=== PATIENT | female | born 1970 | race Caucasian/White ===

== ENCOUNTER → 2018-07-18 12:55 | Outpatient (CLI) | payer MEDICARE, SELFPAY ==
--- NOTE | 2018-07-18 12:56 | CI_ITS ---
Cerebrovascular Exam Indications: 780.4 Dizziness and giddiness. 784.5 Other speech disturbance. IMPRESSIONS 1. The bilateral vertebral arteries are patent with normal antegrade flow. 2. Study suggests less than 20% stenosis involving the right internal carotid artery. 3. Study suggests less than 20% stenosis involving the left internal carotid artery. Carotid duplex study. Complete study and Doppler flow study including spectral analysis, color and diaz scale imaging. Location: Vascular laboratory. Patient status: Outpatient. Tables: Arterial flow: + +--------+--------+ Location V sys V ed + +--------+--------+ Right CCA - proximal 83.3cm/s 23.6cm/s + +--------+--------+ Right CCA - distal 49.5cm/s 18.1cm/s + +--------+--------+ Right ECA 65.1cm/s 15.9cm/s + +--------+--------+ Right ICA - proximal 55.7cm/s 20.8cm/s + +--------+--------+ Right ICA - mid 70.5cm/s 28.9cm/s + +--------+--------+ Right ICA - distal 63.9cm/s 29.5cm/s + +--------+--------+ Right vertebral 42.9cm/s 18.3cm/s + +--------+--------+ Left CCA - proximal 71.7cm/s 17.6cm/s + +--------+--------+ Left CCA - distal 57.4cm/s 17.3cm/s + +--------+--------+ Left ECA 50.8cm/s 12cm/s + +--------+--------+ Left ICA - proximal 54cm/s 21.1cm/s + +--------+--------+ Left ICA - mid 63.6cm/s 27.2cm/s + +--------+--------+ Left ICA - distal 62.2cm/s 22.3cm/s + +--------+--------+ Left vertebral 38.2cm/s 15.3cm/s + +--------+--------+ Velocity ratios: + + + + + + Right, V sys Right, V ed Left, V sys Left, V ed + + + + + + Max ICA/dist CCA 1.42 1.63 1.11 1.57 + + + + + + (Report amended ) Electronically signed by: Shayan Valentin [id number]
--- NOTE | 2018-07-18 14:12 | MR_ITS ---
MR head/brain wo con Ordering Physician: Arleen Castle Patient Age: 47 years: Female HISTORY: ITS.REASON: ALTERED MENTAL STATUS Dizziness that comes and goes at times when she is dizzy she can barely keep her eyes open and once to go to sleep. More frequent episodes. Also has had slurred words and cc of black spots TECHNIQUE: MRI the brain without contrast. : Multiplanar FLAIR, T1, T2 weighted images along with axial diffusion/ADC imaging performed on 1.5 T. Siemens, MRI. . COMPARISON :Prior CT head 12/13/2015. FINDINGS The brain appears within normal limits normal anatomy. Normal cranial cervical junction. The ventricles and basal cisterns appear normal. Sella is unremarkable. Suprasellar region satisfactory. Survey images [place] appears satisfactory on this routine brain MRI No territorial infarct. No extra-axial nor subdural findings or collections. No mass lesion or mass effect. The diffusion images reveal no recent or acute infarct. The sensitive FLAIR images show no deep white matter lesions . Scalp and skull unremarkable Posterior fossa. Unremarkable. CP angles are clear. IACs unremarkable within normal limits. The mastoid air cells unremarkable. . The paranasal sinuses are fairly clear with only scant mucosal thickening at floor of left sphenoid sinus and mild mucosal thickening ethmoid air cells inferiorly. Mild mucosal thickening at inferior maxillary sinuses with 14 mm x 15 mm retention cyst lateral floor of left maxillary sinus.... Note Deviation nasal septum convexity to the right IMPRESSION... 1. Negative MRI the brain. Brain WNL.. Normal anatomy. No lesions evident 2. Incidental note: Mild chronic paranasal sinus disease most evident towards the floor of maxillary sinuses. No fluid levels. 3. Otherwise regarding dizziness:, posterior fossa, CP angles,, IACs, mastoids unremarkable .
== END ==
PROVIDERS: PCP Nurse Practitioner Family; Visit Provider Nurse Practitioner Family
DX: R41.82 Altered mental status, unspecified (principal); R42 Dizziness and giddiness
CPT/HCPCS: 70551; 93880

== ENCOUNTER → 2020-06-04 08:30 | Outpatient (CLI) | payer MEDICARE, SELFPAY ==
[2020-06-04 09:24] LABS: Coronavirus 19 IgG Antibody Negative (Negative); Coronavirus 19 IgM Antibody Negative (Negative)
== END ==
PROVIDERS: Visit Provider Internal Medicine Gastroenterology
DX: Z01.812 Encounter for preprocedural laboratory examination (principal)
CPT/HCPCS: 36415; 86328

== ENCOUNTER 2020-06-06 07:54 | Day surgery (SDC) | payer MEDICARE, SELFPAY ==
[2020-05-31 10:24] VITALS: BMI 27.3
[2020-06-06] VITALS (7 sets, daily range): BP systolic 107–147; BP diastolic 60–92; PULSE 63–114; RESP 16–18; TEMP 36.6; O2SAT 93–100
--- NOTE | 2020-06-06 08:44 | HMH.PROC ---
[facility] Procedure Note Procedure Note:: Colonoscopy Procedure Report: Colonoscopy Endoscopist: Ilir Narvaez II, MD Referring physician: MILO Rand Date of Procedure: June 06, 2020 Equipment: Olympus 180 variable stiffness pediatric colonoscope Sedation: MAC sedation Indication: Mrs. Yung is a 49-year-old female who is here for initial screening colonoscopy. She reports no abdominal pain, weight loss, change in her bowel habits or rectal bleeding. She reports no family history of colon cancer. Procedure: Prior to the procedure, a history and physical exam was performed, and patient's medications and allergies were reviewed. The risks, benefits and alternatives of the sedation and procedure were discussed with the patient. All questions were answered and informed consent was obtained. The patient was brought to the procedure room. Patient identification and proposed procedure were verified by the physician and the nurse. The patient was placed in a left lateral decubitus position and the scope was passed under direct vision. Throughout the procedure, the patient's blood pressure, pulse, and oxygen saturations were monitored continuously. The colonoscopy was accomplished without difficulty. The patient tolerated the procedure well. Findings: On digital rectal examination there was normal rectal tone. There were no external hemorrhoids. The colonoscope was introduced through the anal canal to the rectum and advanced to the cecum. The ileocecal valve and appendiceal orifice were identified. The scope was advanced a short distance into the ileum which appeared grossly normal. The scope was then withdrawn into the colon. The cecum, ascending, transverse, descending, sigmoid and rectum were grossly normal. There were no mucosal abnormalities identified. Upon retroflexion within the rectum there were grade 1 internal hemorrhoids.The preparation was excellent throughout with [place] Preparation Score of 9. The cecal time was 12 minutes. Impression: 1. Normal colonoscopy with intubation of the terminal ileum 2. Grade 1 internal hemorrhoids Plan: The patient will not require screening/surveillance colonoscopy again for 10 years by ACS guidelines. I would encourage fiber supplementation on a long-term daily maintenance basis.
--- NOTE | 2020-06-06 10:07 | P.PN_ITS ---
[facility] Anesthesia Checklist - Patient Identification Patient Identification: Arm Band - Structural Data Admitted From: Home Planned Operative Procedure/s: colonoscopy Consent for Planned Operative Procedure(s) Verified: Yes Verified Documents: Surgical Consent, History and Physical - NPO Status Verified Time NPO: 00:00 - Additional verifications Anesthesia Reactions: No - Airway Assessment C-Spine Mobility Assessed: Yes (mp2) TMJ Mobility Assessed: Yes Dentition: Good Dentition - Neurological Assessment Level of Consciousness: Awake, Alert - Anesthesia Plan Anesthesia Risk discussed: Yes Anesthesia Plan: Verified ASA Class: II Anesthesia Type: MAC [facility] History I have reviewed the patient's past medical history: Yes Medical History: Reports:: Hyperlipidemia Denies:: Cancer, Diabetes Mellitus Type 1, Diabetes Mellitus Type 2, Internal Pacemaker, MRSA, Seizures *Have you ever received a pneumonia vaccine?: No *Have you received a flu vaccine this season?: Yes Anesthesia experience/problems:: nac Other Surgeries: Yes: Tubal Ligation. No: Pacemaker Amputation: No Fractures: No - *Social History Last grade of school completed: Some college Smoking Status: Never smoker Alcohol Intake: never Substance Use Type: denies use *Occupational Status:: disabled Housing: house Household Members: spouse *Travel in the last 8 weeks: None Family Hx:: No significant family history
== END 2020-06-06 10:15 | disposition home or self-care (01) ==
LOC: OUTP 07:57
PROVIDERS: PCP Nurse Practitioner Family; Visit Provider Internal Medicine Gastroenterology
PROC: 0DJD8ZZ Inspection of Lower Intestinal Tract, Via Natural or Artificial Opening Endoscopic (ICD-10-PCS; CPT 45378; principal; 2020-06-06 09:00)
DX: Z12.11 Encounter for screening for malignant neoplasm of colon (principal); K64.0 First degree hemorrhoids; E78.5 Hyperlipidemia, unspecified; Z79.899 Other long term (current) drug therapy
CPT/HCPCS: G0121

== ENCOUNTER 2023-08-21 12:44 | Emergency (ER) | payer MEDICARE, SELFPAY ==
[2023-08-21] VITALS (8 sets, daily range): BP systolic 133–162; BP diastolic 71–95; PULSE 59–78; RESP 16–18; TEMP 36.7; O2SAT 95–98; BMI 28.3
--- NOTE | 2023-08-21 12:53 | ECG_ITS ---
APPROVED REPORT Exam: Resting ECG HR:65 bpm ECG Measurements Heart Rate 65 AXES MN 180 P 44 QRSd 98 QRS 12 QT 402 T 33 QTc 414 Conclusion SINUS RHYTHM NORMAL ECG Electronically signed by : YESSY MARY, 08/21/2023 19:28:20
--- NOTE | 2023-08-21 13:02 | PC.NURSE ---
Dr. Fernandez at [facility] for pt eval
[2023-08-21 13:06] LABS: Basophils # 0.1 K/mm3 (0-0.2); Basophils % 1.1 % (0.1-2.0); Eosinophils # 0.3 K/mm3 (0.0-0.4); Eosinophils % 4.4 % (0.1-12.0); Hematocrit 41.7 % (37.0-47.0); Hemoglobin 13.8 g/dL (12.2-16.2); Lymphocytes # 1.8 K/mm3 (0.7-4.5); Lymphocytes % 28.5 % (10-50); Mean Corpuscular HGB Conc 33.1 g/dL (31.8-35.4); Mean Corpuscular Hemoglobin 30.6 pg (27.0-31.2); Mean Corpuscular Volume 92.6 fl (81-99); Mean Platelet Volume 8.6 fl (7.4-10.4); Monocytes # 0.3 K/mm3 (0.1-1.0); Monocytes % 5.2 % (1.7-9.3); Neutrophils # 3.9 K/mm3 (1.8-7.8); Neutrophils % 60.8 % (37.0-80.0); Platelet Count 300 K/mm3 (142-424); Red Cell Distribution Width 13.3 % (11.5-17.5); White Blood Count 6.5 K/mm3 (4.8-10.8)
--- NOTE | 2023-08-21 13:13 | CT_ITS ---
FINAL REPORT TECHNIQUE: thin section axial CT with and without IV contrast supplemented with multiplanar 3-D reconstruction of the head. This study was performed with techniques to keep radiation doses as low as reasonably achievable, (ALARA)individualized dose reduction techniques using automated exposure control or adjustment of mA and/or kV according to the patient's size were employed. CLINICAL HISTORY: FERRELL, left sided weakness/sensory loss 3 days FINDINGS: The cranial circulation is unremarkable. There is no significant stenosis, aneurysm or occlusion. There is lobular mucoperiosteal thickening in the maxillary sinus consistent with chronic sinusitis. IMPRESSION: No evidence of aneurysm or major branch occlusion. Reviewed, Interpreted and Dictated by Calvin Beck MD Transcribed by Teena Simental Authenticated and [facility]
--- NOTE | 2023-08-21 13:13 | CT_ITS ---
FINAL REPORT TECHNIQUE: NASCET technique utilized for stenosis evaluation. CLINICAL HISTORY: FERRELL, left sided weakness/sensory loss 3 days FINDINGS: RIGHT CAROTID: No significant stenosis is seen of the cervical common or internal carotid artery. LEFT CAROTID: No significant stenosis seen of the cervical common or internal carotid artery. VERTEBRALS: The vertebrals are patent. No significant stenosis is present. IMPRESSION: No significant carotid stenosis. Reviewed, Interpreted and Dictated by Calvin Beck MD Transcribed by Teena Simental Authenticated and [facility]
--- NOTE | 2023-08-21 13:13 | CT_ITS ---
FINAL REPORT TECHNIQUE: Axial CT images were performed through the head. Coronal reformatted images were submitted. This study was performed with techniques to keep radiation doses as low as reasonably achievable (ALARA). Individualized dose reduction techniques using automated exposure control or adjustment of mA and/or kV according to the patient's size were employed. CLINICAL HISTORY: FERRELL, left sided weakness/sensory loss 3 days FINDINGS: The ventricles are normal in size. There is no evidence of hemorrhage. There is no mass or edema identified. There is no abnormal extra-axial fluid seen. There is lobular mucoperiosteal thickening in the left maxillary sinus. IMPRESSION: No acute intracranial process. Chronic left maxillary sinusitis. Reviewed, Interpreted and Dictated by Calvin Beck MD Transcribed by Teena Simental Authenticated and . [facility]
--- NOTE | 2023-08-21 13:18 | HMH.EDGENADL ---
Discharge Plan Disposition Patient Disposition: Home, Self-Care Condition: Good Prescriptions Prescriptions: No Action pravastatin 40 MG tablet 40 mg PO HS hydrochlorothiazide 12.5 MG tablet 12.5 mg PO DAILY Referrals Follow up/Referrals: Arleen Castle [Primary Care Provider] - See instructions Activity Restrictions/Add. Instructions Additional Instructions/Restrictions: You were evaluated in the emergency department today. Please keep your follow-up tomorrow with your specialists. They can advise you further on your symptoms. If you wake up tomorrow with severe headache or new neurologic symptoms, do not drive or operate heavy machinery. I recommend resting for the rest of the day and avoiding driving today given that you received multiple medications that can be sedating. Return to the emergency department for new or worsening symptoms. Clinical Impressions Clinical Impression: Headache, Left-sided weakness Instructions Patient Instructions: DI for Migraine Discharge ED Provider: Layne Guaman General Adult HPI <J Mendel Fernandez MD - Last Filed: 08/21/23 14:52> General Chief complaint: Headache Stated complaint: headaches,weak on left side Time Seen by Provider: 08/21/23 13:02 Mode of Arrival: EMS Source of Information: Patient Limitations: No Limitations Description of Symptoms (Recalled from ER Triage Doc. by RN): Patient reports recurrent left sided headache and weakness. States this episode has been going on for 3 days and has just continued to get worse. Reports having compressed nerves in her neck and has been awaiting surgery to correct this problem. Currently sees pain management for this problem. History of Present Illness HPI narrative: Patient is a 52-year-old female presents today with left-sided headache and left upper extremity and lower extremity weakness and sensory changes. She states that this has been ongoing for several years she is followed by a neurologist and neurosurgeon [facility] has been getting pain injections in her neck by pain specialist as well. She states she always has some weakness but this is worse than normal over the last several days. States the headache is also worse than normal last several days. She is accompanied by her daughter at the bedside who states that she is more out of it, than she normally is. The patient denies any drug use. No history of illicit drug use as well according to family he is close to her. No fevers or chills or any other symptoms associate with this. When asked what changed today given the chronicity of this she states that it was just out of proportion to what she is normally had the past. She does have a history of scleroderma and Sjogren's and she takes rituximab but states she has not had 1 of these injections and a long time. Related Data Home Medications Medication Instructions Recorded Confirmed hydrochlorothiazide 12.5 mg tablet 12.5 mg PO DAILY High blood 05/31/20 05/31/20 pressure pravastatin 40 mg tablet 40 mg PO HS Cholesterol 05/31/20 05/31/20 Allergies Allergy/AdvReac Type Severity Reaction Status Date / Time No Known Allergies Allergy Verified 05/31/20 10:22 [facility] <Adriana Fernandez MD - Last Filed: 08/21/23 14:52> [facility] Disclaimer: The information contained in this section may have been updated after the patient was seen, as this information can be updated by other users. Social History Smoking Status: Unknown if ever smoked alcohol intake: never substance use type: denies use current occupational status: disabled Travel in the last 8 weeks: None household members: spouse housing: house current occupation: save a lot caffeine: No <Adriana Fernandez MD - Last Filed: 08/21/23 14:52> ROS Obtained: Yes All systems reviewed & no additional complaints except as documented Physical Exam <Adriana Fernandez MD - Last Filed: 08/21/23 14:52> General General appearance: alert and in no apparent distress Eye Eye exam: Present normal appearance Respiratory Respiratory exam: Present normal lung sounds bilaterally; Absent respiratory distress Cardiovascular Cardiovascular exam: Present regular rate and normal rhythm Abdominal Exam Abdominal exam: Present soft; Absent distention or tenderness Neurological Exam Neurological exam: Present alert, oriented X3, CN II-XII intact, motor sensory deficit (Patient has 4/5 strength in left upper and left lower extremity with decreased sensation throughout but she has no pronator drift) and other (Patient has slowed cognition speaking slowly but fluently and comprehensible family states this is out of proportion to what she normally is) Medical Decision Making <Adriana Fernandez MD - Last Filed: 08/21/23 14:52> Rickie Inquiry Pt receiving controlled substance: No Vital Signs: 08/21/23 12:44 08/21/23 13:00 08/21/23 13:30 Temperature 98.0 F Temperature Source Oral Pulse Rate 73 71 Pulse Rate [Radial] 78 Respiratory Rate 16 Blood Pressure 153/95 H 152/85 H Blood Pressure [Right Arm] 162/89 H Blood Pressure Mean 107 Blood Pressure Mean [Right Arm] 113 Blood Pressure Source Blood Pressure Source [Right Arm] Automatic Cuff Blood Pressure Position Blood Pressure Position [Right Arm] Sitting 02 Sat by Pulse Oximetry 98 97 98 Oxygen Delivery Method Room Air Room Air Room Air 08/21/23 14:00 08/21/23 15:00 08/21/23 15:30 Temperature Temperature Source Pulse Rate 68 66 59 L Pulse Rate [Radial] Respiratory Rate Blood Pressure 133/71 133/77 133/72 Blood Pressure [Right Arm] Blood Pressure Mean 91 97 101 Blood Pressure Mean [Right Arm] Blood Pressure Source Blood Pressure Source [Right Arm] Blood Pressure Position Blood Pressure Position [Right Arm] 02 Sat by Pulse Oximetry 97 97 95 Oxygen Delivery Method Room Air Room Air Room Air 08/21/23 16:00 08/21/23 17:08 Temperature 98.1 F Temperature Source Oral Pulse Rate 60 60 Pulse Rate [Radial] Respiratory Rate 18 Blood Pressure 143/82 H 143/82 H Blood Pressure [Right Arm] Blood Pressure Mean 106 Blood Pressure Mean [Right Arm] Blood Pressure Source Automatic Cuff Blood Pressure Source [Right Arm] Blood Pressure Position Sitting Blood Pressure Position [Right Arm] 02 Sat by Pulse Oximetry 96 Oxygen Delivery Method Room Air Room Air Lab Data Lab results reviewed: Yes I reviewed the patient's lab results. Lab Results 08/21/23 12:51: WBC 6.5, RBC 4.50, Hgb 13.8, Hct 41.7, MCV 92.6, MCH 30.6, MCHC 33.1, RDW 13.3, Plt Count 300, MPV 8.6, Neut % (Auto) 60.8, Lymph % (Auto) 28.5, [place] % (Auto) 5.2, Eos % (Auto) 4.4, Baso % (Auto) 1.1, Neut # (Auto) 3.9, Lymph # (Auto) 1.8, [place] # (Auto) 0.3, Eos # (Auto) 0.3, Baso # (Auto) 0.1, PT 10.0 L, INR 0.92, APTT 27.8, Troponin I 0.02 08/21/23 14:20: Sodium 140, Potassium 4.0, Chloride 108 H, Carbon Dioxide 26, Anion Gap 10.0, BUN 8, Creatinine 0.80, Estimated Creat Clear 99, Estimated GFR 75, Est GFR ( Amer) 91, Glucose 103 H, Calcium 9.3, Total Bilirubin 1.0, AST 30, ALT 32, Alkaline Phosphatase 92, Total Protein 6.5, Albumin 4.0, Globulin 2.5, Albumin/Globulin Ratio 1.6 08/21/23 14:40: Urine Opiates Screen Negative, Urine Methadone Screen Negative, Ur Barbituates Screen Negative, Ur Phencyclidine Scrn Negative, Ur Amphetamines Screen Negative, U Benzodiazepines Scrn Negative, Urine Cocaine Screen Negative, U Marijuana (THC) Screen Negative 08/21/23 12:51 08/21/23 14:20 Orders (Tests/Meds): ED MEDICATIONS Discontinued Medications Generic Name Dose Route Start Last Admin Trade Name Freq PRN Reason Stop Dose Admin Dexamethasone Sodium Phosphate 10 mg 08/21/23 14:48 08/21/23 14:55 Dexamethasone 4mg/Ml 1ml Vial IV 08/21/23 14:49 10 mg ONCE ONE Administration Diphenhydramine HCl 12.5 mg 08/21/23 13:13 08/21/23 13:32 Diphenhydramine 50mg/Ml Vial IV 08/21/23 13:14 12.5 mg ONCE ONE Administration Lactated Ringer's 1,000 mls @ 999 mls/hr 08/21/23 13:15 08/21/23 13:33 Lactated Ringer's 1000 Ml Bag IV 08/21/23 14:15 999 mls/hr .Q1H1M HAZEL Administration Iopamidol 100 ml 08/21/23 14:30 08/21/23 14:33 Iopamidol-370 (76%);100ml Bottle IV 08/21/23 14:31 100 ml ONCE ONE Administration Ketorolac Tromethamine 15 mg 08/21/23 13:13 08/21/23 13:32 Ketorolac 30mg/Ml Vial IV 08/21/23 13:14 15 mg ONCE ONE Administration Prochlorperazine Edisylate 5 mg 08/21/23 13:13 08/21/23 13:32 Prochlorperazine 10mg/2ml Vial IV 08/21/23 13:14 5 mg ONCE ONE Administration Sodium Chloride 10 ml 08/21/23 12:54 Sodium Chloride 0.9% 10ml Flush Syringe IV 09/20/23 12:53 NEEDED PRN Maintain IV Site Sodium Chloride 40 ml 08/21/23 14:30 08/21/23 14:33 0.9 % Sodium Chloride 50 Ml Vial IV 08/21/23 14:31 40 ml ONCE ONE Administration Sodium Chloride 10 ml 08/21/23 14:30 08/21/23 14:33 Sodium Chloride 0.9% 10ml Syr (Rad Only) IV 08/21/23 14:31 10 ml ONCE ONE Administration ORDERS Category Date Time Status CT angio head Stat Cat Scan 08/21/23 13:[address] angio neck Stat Cat Scan 08/21/23 13:[address] head/brain wo con Stat Cat Scan 08/21/23 13:13 Completed CMP [Comprehensive Metabolic Panel] Stat Lab 08/21/23 14:20 Completed Complete Blood Count Auto Diff Stat Lab 08/21/23 12:51 Completed PT/PTT Stat Lab 08/21/23 12:51 Completed Trop I [Troponin I] Stat Lab 08/21/23 12:51 Completed Troponin I Q3H Lab 08/21/23 19:15 Ordered UDS [Drug Screen,Urine] Stat Lab 08/21/23 14:40 Completed ECG Data Tracing #1: I reviewed this ECG and interpreted as documented below: Ventricular rate of 65 sinus rhythm indeterminate axis no acute ischemic changes or conduction abnormalities Medical Decision Narrative: 52-year-old female presenting today with worsening headache and left upper extremity and lower extremity weakness and sensory changes over the last several days. She states this is been ongoing for several years and that she always has some baseline weakness in the left side of her body but that this is little bit worse. Differential includes vascular dissection, space-occupying lesion, chronic pain associated with her known spinal radiculopathies, complex migraine, drug use, etc. Family is adamant as well as the patient that she has not been taking any illicit drugs we will continue to workup other pathologies including getting a CT scan of her head and CT angio of her head neck. She does not appear to have any meningismus or fever but meningitis are on the differential or encephalitis as well. Migraine cocktail has been administered will reassess after initial workup is complete. Reassessment 2:50 PM labs are still pending however CT scans were performed which I personally interpreted I do not see any acute neurovascular emergency. I reassessed the patient she is up walking has a normal neurologic exam at this point she states that she still has the subjective symptoms on the left side of her body but they are at her baseline. These completely improved with the resolution or significant improvement of her headache. I am adding dexamethasone to prevent worsening rebound of her symptoms. I do not suspect meningitis or encephalitis or any alternative diagnosis at this point. Awaiting formal reads and CMP to return care will be transitioned to Dr. Layne Guaman at 3 PM for final disposition. Lastly, I do not believe this is a transient ischemic attack or stroke and do not believe that further MRI imaging is needed nor do I believe that she has worsening of her impingement of her spinal cord from her chronic pathology. She actually has an appointment tomorrow with neurology regarding some of these symptoms with [facility] that she is been dealing with chronically. <Layne Guaman, DO - Last Filed: 08/21/23 18:54> Vital Signs: 08/21/23 12:44 08/21/23 13:00 08/21/23 13:30 Temperature 98.0 F Temperature Source Oral Pulse Rate 73 71 Pulse Rate [Radial] 78 Respiratory Rate 16 Blood Pressure 153/95 H 152/85 H Blood Pressure [Right Arm] 162/89 H Blood Pressure Mean 107 Blood Pressure Mean [Right Arm] 113 Blood Pressure Source Blood Pressure Source [Right Arm] Automatic Cuff Blood Pressure Position Blood Pressure Position [Right Arm] Sitting 02 Sat by Pulse Oximetry 98 97 98 Oxygen Delivery Method Room Air Room Air Room Air 08/21/23 14:00 08/21/23 15:00 08/21/23 15:30 Temperature Temperature Source Pulse Rate 68 66 59 L Pulse Rate [Radial] Respiratory Rate Blood Pressure 133/71 133/77 133/72 Blood Pressure [Right Arm] Blood Pressure Mean 91 97 101 Blood Pressure Mean [Right Arm] Blood Pressure Source Blood Pressure Source [Right Arm] Blood Pressure Position Blood Pressure Position [Right Arm] 02 Sat by Pulse Oximetry 97 97 95 Oxygen Delivery Method Room Air Room Air Room Air 08/21/23 16:00 08/21/23 17:08 Temperature 98.1 F Temperature Source Oral Pulse Rate 60 60 Pulse Rate [Radial] Respiratory Rate 18 Blood Pressure 143/82 H 143/82 H Blood Pressure [Right Arm] Blood Pressure Mean 106 Blood Pressure Mean [Right Arm] Blood Pressure Source Automatic Cuff Blood Pressure Source [Right Arm] Blood Pressure Position Sitting Blood Pressure Position [Right Arm] 02 Sat by Pulse Oximetry 96 Oxygen Delivery Method Room Air Room Air Lab Data Lab Results 08/21/23 12:51: WBC 6.5, RBC 4.50, Hgb 13.8, Hct 41.7, MCV 92.6, MCH 30.6, MCHC 33.1, RDW 13.3, Plt Count 300, MPV 8.6, Neut % (Auto) 60.8, Lymph % (Auto) 28.5, [place] % (Auto) 5.2, Eos % (Auto) 4.4, Baso % (Auto) 1.1, Neut # (Auto) 3.9, Lymph # (Auto) 1.8, [place] # (Auto) 0.3, Eos # (Auto) 0.3, Baso # (Auto) 0.1, PT 10.0 L, INR 0.92, APTT 27.8, Troponin I 0.02 08/21/23 14:20: Sodium 140, Potassium 4.0, Chloride 108 H, Carbon Dioxide 26, Anion Gap 10.0, BUN 8, Creatinine 0.80, Estimated Creat Clear 99, Estimated GFR 75, Est GFR ( Amer) 91, Glucose 103 H, Calcium 9.3, Total Bilirubin 1.0, AST 30, ALT 32, Alkaline Phosphatase 92, Total Protein 6.5, Albumin 4.0, Globulin 2.5, Albumin/Globulin Ratio 1.6 08/21/23 14:40: Urine Opiates Screen Negative, Urine Methadone Screen Negative, Ur Barbituates Screen Negative, Ur Phencyclidine Scrn Negative, Ur Amphetamines Screen Negative, U Benzodiazepines Scrn Negative, Urine Cocaine Screen Negative, U Marijuana (THC) Screen Negative Orders (Tests/Meds): ED MEDICATIONS Discontinued Medications Generic Name Dose Route Start Last Admin Trade Name Freq PRN Reason Stop Dose Admin Dexamethasone Sodium Phosphate 10 mg 08/21/23 14:48 08/21/23 14:55 Dexamethasone 4mg/Ml 1ml Vial IV 08/21/23 14:49 10 mg ONCE ONE Administration Diphenhydramine HCl 12.5 mg 08/21/23 13:13 08/21/23 13:32 Diphenhydramine 50mg/Ml Vial IV 08/21/23 13:14 12.5 mg ONCE ONE Administration Lactated Ringer's 1,000 mls @ 999 mls/hr 08/21/23 13:15 08/21/23 13:33 Lactated Ringer's 1000 Ml Bag IV 08/21/23 14:15 999 mls/hr .Q1H1M HAZEL Administration Iopamidol 100 ml 08/21/23 14:30 08/21/23 14:33 Iopamidol-370 (76%);100ml Bottle IV 08/21/23 14:31 100 ml ONCE ONE Administration Ketorolac Tromethamine 15 mg 08/21/23 13:13 08/21/23 13:32 Ketorolac 30mg/Ml Vial IV 08/21/23 13:14 15 mg ONCE ONE Administration Prochlorperazine Edisylate 5 mg 08/21/23 13:13 08/21/23 13:32 Prochlorperazine 10mg/2ml Vial IV 08/21/23 13:14 5 mg ONCE ONE Administration Sodium Chloride 10 ml 08/21/23 12:54 Sodium Chloride 0.9% 10ml Flush Syringe IV 09/20/23 12:53 NEEDED PRN Maintain IV Site Sodium Chloride 40 ml 08/21/23 14:30 08/21/23 14:33 0.9 % Sodium Chloride 50 Ml Vial IV 08/21/23 14:31 40 ml ONCE ONE Administration Sodium Chloride 10 ml 08/21/23 14:30 08/21/23 14:33 Sodium Chloride 0.9% 10ml Syr (Rad Only) IV 08/21/23 14:31 10 ml ONCE ONE Administration ORDERS Category Date Time Status CT angio head Stat Cat Scan 08/21/23 13:[address] angio neck Stat Cat Scan 08/21/23 13:[address] head/brain wo con Stat Cat Scan 08/21/23 13:13 Completed CMP [Comprehensive Metabolic Panel] Stat Lab 08/21/23 14:20 Completed Complete Blood Count Auto Diff Stat Lab 08/21/23 12:51 Completed PT/PTT Stat Lab 08/21/23 12:51 Completed Trop I [Troponin I] Stat Lab 08/21/23 12:51 Completed Troponin I Q3H Lab 08/21/23 19:15 Ordered UDS [Drug Screen,Urine] Stat Lab 08/21/23 14:40 Completed Medical Decision Narrative: 52-year-old female presenting today with worsening headache and left upper extremity and lower extremity weakness and sensory changes over the last several days. She states this is been ongoing for several years and that she always has some baseline weakness in the left side of her body but that this is little bit worse. Differential includes vascular dissection, space-occupying lesion, chronic pain associated with her known spinal radiculopathies, complex migraine, drug use, etc. Family is adamant as well as the patient that she has not been taking any illicit drugs we will continue to workup other pathologies including getting a CT scan of her head and CT angio of her head neck. She does not appear to have any meningismus or fever but meningitis are on the differential or encephalitis as well. Migraine cocktail has been administered will reassess after initial workup is complete. Reassessment 2:50 PM labs are still pending however CT scans were performed which I personally interpreted I do not see any acute neurovascular emergency. I reassessed the patient she is up walking has a normal neurologic exam at this point she states that she still has the subjective symptoms on the left side of her body but they are at her baseline. These completely improved with the resolution or significant improvement of her headache. I am adding dexamethasone to prevent worsening rebound of her symptoms. I do not suspect meningitis or encephalitis or any alternative diagnosis at this point. Awaiting formal reads and CMP to return care will be transitioned to Dr. Layne Guaman at 3 PM for final disposition. Lastly, I do not believe this is a transient ischemic attack or stroke and do not believe that further MRI imaging is needed nor do I believe that she has worsening of her impingement of her spinal cord from her chronic pathology. She actually has an appointment tomorrow with neurology regarding some of these symptoms with [facility] that she is been dealing with chronically. DO Deinz: On my assessment of the patient, she is resting calmly with significantly improved symptoms and is at her baseline. She has close follow-up arranged tomorrow already. Given that her symptoms have improved, she is resting comfortably, and no other concerns or complaints are present at this time, feel that she is appropriate for discharge with continued plan for outpatient follow-up. Strict return precautions were given, and the patient was discharged after all questions were answered. Critical Care <Adriana Fernandez MD - Last Filed: 08/21/23 14:52> Critical Care Time Critical Care Time: Yes Attestation: On 08/21/23, the high probability of a clinically significant, sudden or life threatening deterioration of the following system(s) required my full and direct attention, intervention and personal management. The time I documented below is in addition to time spent performing reported procedures but includes the following listed in this critical care notation. Total Time Total Critical Care Time: 35
[2023-08-21] MEDS: KETOROLAC 30MG/ML VIAL 15 MG IV (13:32)
[2023-08-21] MEDS: PROCHLORPERAZINE 10MG/2ML VIAL 5 MG IV (13:32)
[2023-08-21] MEDS: diphenhydrAMINE 50MG/ML VIAL 12.5 MG IV (13:32)
[2023-08-21] MEDS: LACTATED RINGERS 1000ML 1,000 ML 999 ML IV (13:33)
[2023-08-21 13:36] LABS: Activated Partial Thrombo Time 27.8 seconds (22.8-30.6); INR 0.92 (0.9-1.1)
[2023-08-21 13:50] LABS: Troponin I 0.02 ng/ml (0.00-0.034)
--- NOTE | 2023-08-21 14:12 | PC.NURSE ---
Kallie from radiology called checking if Dr. Fernandez would like pt to go ahead and be scanned or wait for re-collect labs. Dr. Fernandez would like pt to go ahead and be scanned. Radiology will be to pt's room shortly.
--- NOTE | 2023-08-21 14:21 | PC.NURSE ---
Pt gone to CT via stretcher
[2023-08-21] MEDS: SODIUM CHLORIDE 0.9% 10ML SYR (RAD ONLY) 10 ML IV (14:33)
[2023-08-21] MEDS: IOPAMIDOL-370 (76%);100ML BOTTLE 100 ML IV (14:33)
[2023-08-21] MEDS: 0.9 % SODIUM CHLORIDE 50 ML VIAL 40 ML IV (14:33)
--- NOTE | 2023-08-21 14:38 | PC.NURSE ---
Pt returned from CT
--- NOTE | 2023-08-21 14:39 | PC.NURSE ---
PT BACK FROM RADIOLOGY AN AMBULATING TO [facility]
--- NOTE | 2023-08-21 14:41 | PC.NURSE ---
Pt ambulatory to bathroom
[2023-08-21 14:43] LABS: Chloride 108 mmol/L (98-107); Sodium 140 mmol/L (136-145)
--- NOTE | 2023-08-21 14:45 | PC.NURSE ---
Dr. Fernandez at BS to update pt on results and POC
[2023-08-21 14:46] LABS: Alanine Aminotransferase 32 U/L (12-78); Albumin/Globulin Ratio 1.6 (1.1-1.8); Alkaline Phosphatase 92 U/L (38-126); Aspartate Amino Transferase 30 U/L (14-36); Blood Urea Nitrogen 8 mg/dl (7-17); Carbon Dioxide 26 mmol/L (22.0-30.0); Creatinine Clearance Estimated 99 mL/min (50-200); Estimated Glomerular Filt Rate 75 ml/min (>60); GFR (African American) 91 ML/MIN (>60); Globulin 2.5 g/dL (1.3-3.2); Total Protein,Serum 6.5 g/dl (6.3-8.2)
[2023-08-21 14:47] LABS: Calcium 9.3 mg/dl (8.4-10.2); Glucose 103 mg/dl (74-100)
[2023-08-21] MEDS: DEXAMETHASONE 4MG/ML 1ML VIAL 10 MG IV (14:55)
[2023-08-21 15:09] LABS: Benzodiazepines Screen,Urine Negative ng/ml (<200)
[2023-08-21 15:10] LABS: Amphetamine/Metha Screen,Urine Negative ng/ml (<1000)
[2023-08-21 15:11] LABS: Barbiturates Screen,Urine Negative ng/ml (<200); Cannabinoid Screen,Urine Negative ng/ml (<50)
[2023-08-21 15:12] LABS: Cocaine Screen,Urine Negative ng/ml (<300)
[2023-08-21 15:13] LABS: Methadone Screen,Urine Negative ng/ml (<300); Opiate Screen,Urine Negative ng/ml (<300)
[2023-08-21 15:14] LABS: Phencyclidine Screen,Urine Negative ng/ml (<25)
== END 2023-08-21 17:10 | disposition home or self-care (01) ==
PROVIDERS: Student in an Organized Health Care Education/Training Program; Emergency Provider Emergency Medicine; PCP Nurse Practitioner Family
DX: G44.89 Other headache syndrome (principal); R29.898 Other symptoms and signs involving the musculoskeletal system; M62.81 Muscle weakness (generalized)
CPT/HCPCS: 36415; 70450; 70496; 70498; 80053; 80307; 84484; 85025; 85610; 85730; 93005; 96361; 96374; 96375; 99285; Q9967

== ENCOUNTER 2023-12-23 14:18 | Emergency (ER) | payer MEDICARE, SELFPAY ==
[2023-12-23 14:26] VITALS: BP 163/95; PULSE 84; O2SAT 100
[2023-12-23 14:30] VITALS: BP 145/88; PULSE 67; O2SAT 100
--- NOTE | 2023-12-23 14:30 | CT_ITS ---
FINAL REPORT TECHNIQUE: Noncontrast exam This study was performed with techniques to keep radiation doses as low as reasonably achievable, (ALARA). Individualized dose reduction techniques using automated exposure control or adjustment of mA and/or kV according to the patient''s size were employed. CLINICAL HISTORY: Headache dizziness, nausea COMPARISON: 08/21/2023 FINDINGS: No abnormal density is seen. Ventricles are normal. There is no hemorrhage. No mass effect is seen. Bone windows show no evidence of fracture. There has been interval resolution of left-sided sinusitis. IMPRESSION: No acute findings Reviewed, Interpreted and Dictated by Monika Herring MD Transcribed by Arianna Barnard Authenticated and [facility]
--- NOTE | 2023-12-23 14:32 | ECG_ITS ---
APPROVED REPORT Exam: Resting ECG HR:66 bpm ECG Measurements Heart Rate 66 AXES [place] 176 P 142 QRSd 98 QRS 119 QT 422 T 132 QTc 436 Conclusion Sinus rhythm RVH Nonspecific T wave inversions without reciprocal change Electronically signed by : MAURICIO JORGENSEN, 12/24/2023 16:33:03
--- NOTE | 2023-12-23 14:33 | ED_ITS ---
Discharge Plan Disposition Patient Disposition: Home, Self-Care Condition: Good Prescriptions Prescriptions: No Action pravastatin 40 MG tablet 40 mg PO HS hydrochlorothiazide 12.5 MG tablet 12.5 mg PO DAILY Referrals Follow up/Referrals: Arleen Castle [Primary Care Provider] - See instructions Activity Restrictions/Add. Instructions Additional Instructions/Restrictions: Return to the emergency department for any worsening signs or symptoms, follow- up with neurologist this week, follow-up with PCP to recheck potassium level in the upcoming days. Clinical Impressions Clinical Impression: Headache, Hypokalemia Instructions Patient Instructions: DI for Migraine, DI for Hypokalemia, DI for Chronic Pain -- Adult Print Language Print Language: Japanese Discharge ED Provider: Layne Guaman General Adult HPI <ADAM Pandey - Last Filed: 12/23/23 16:06> General Chief complaint: Headache Stated complaint: headache, High BP, confused Time Seen by Provider: 12/23/23 14:23 Mode of Arrival: Ambulatory Source of Information: Patient and Medical Record Limitations: No Limitations History of Present Illness HPI narrative: 53-year-old female presents emergency with headache, dizziness, episodes of nausea, and some confusion blood pressure that started last night. Patient does have history of cervical disc disease, prior lumbar spine fusion, osteoarthritis, hyperlipidemia, history of chronic migraine type headaches, hypertension. Patient was seen by her primary care provider today, was instructed to come to the emergency department for CT head , she had a prior episode similar to this, patient states that it was actually worse , back in July 2023, where patient also had some left-sided weakness and a headache, she had neuroimaging studies performed, ruled out any CVA, was diagnosed with a complex migraine/cervicalgia. Patient denies any fever chills chest pain, shortness of breath, nausea, denies abdominal pain, denies any constipation, diarrhea, urinary type symptomatology. Denies any overt upper or lower extremity weakness, denies any urinary bladder or bowel dysfunction, denies any numbness or tingling, states that she does have some residual numbness , in her right lower extremity, from prior L4-L5 fusion. Triage vitals are grossly unremarkable, with the exception of an elevated blood pressure 160 systolic. She is a non-smoker, denies any alcohol or drug use. Onset (ago): hour(s) Related Data Home Medications ?Medication ?Instructions ?Recorded ?Confirmed hydrochlorothiazide 12.5 mg tablet 12.5 mg PO DAILY High blood 05/31/20 05/31/20 pressure pravastatin 40 mg tablet 40 mg PO HS Cholesterol 05/31/20 05/31/20 Allergies Allergy/AdvReac Type Severity Reaction Status Date / Time No Known Allergies Allergy Verified 12/23/23 14:45 PFSH <ADAM Pandey - Last Filed: 12/23/23 16:06> [facility] Disclaimer: The information contained in this section may have been updated after the patient was seen, as this information can be updated by other users. Social History Smoking Status: Never smoker alcohol intake: never substance use type: denies use current occupational status: disabled Travel in the last 8 weeks: None household members: spouse housing: house current occupation: save a lot caffeine: No <ADAM Pandey - Last Filed: 12/23/23 16:06> ROS Obtained: Yes All systems reviewed & no additional complaints except as documented Physical Exam <ADAM Pandey - Last Filed: 12/23/23 16:06> General General appearance: alert and in no apparent distress Head Head exam: atraumatic and normocephalic Eye Eye exam: Present PERRL and EOMI ENT ENT exam: Present mucous membranes moist Neck Neck exam: Present normal inspection Chest Chest inspection: Present normal inspection and symmetric chest wall rise Respiratory Respiratory exam: Present normal lung sounds bilaterally; Absent respiratory distress Cardiovascular Cardiovascular exam: Present regular rate and normal rhythm Abdominal Exam Abdominal exam: Present soft; Absent tenderness, guarding, rebound or rigidity Extremities Exam Extremities exam: Present normal inspection Neurological Exam Neurological exam: Present alert, oriented X3 and other (Patient has 5 out of 5 strength in the bilateral lower extremities, patient has some effort related reduced strength against gravity, when lifting the right leg off the bed, no limb ataxia, no dysmetria, no cerebellar ataxia, patient answers questions appropriately); Absent motor sensory deficit Psychiatric Psychiatric exam: Present normal affect Skin Skin exam: Present warm and dry Medical Decision Making <ADAM Pandey - Last Filed: 12/23/23 16:06> Medical Records Medical records reviewed: Yes I reviewed the patient's medical records. Screening: Per USPSTF and CDC recommendations, given the prevalence of disease in our region, it is our hospital?s policy to screen for HIV and viral Hepatitis for all patients aged 18 and over and those with ongoing risk factors. Rickie Inquiry Pt receiving controlled substance: No Vital Signs: 12/23/23 14:26 12/23/23 14:30 12/23/23 14:35 Temperature 97.9 F Temperature Source Oral Pulse Rate 84 67 Pulse Rate [Left] 62 Respiratory Rate 16 Blood Pressure 163/95 H 145/88 H Blood Pressure [Right Arm] 145/88 H Blood Pressure Mean 117 107 Blood Pressure Mean [Right Arm] 107 Blood Pressure Source [Right Arm] Automatic Cuff Blood Pressure Position [Right Arm] Sitting 02 Sat by Pulse Oximetry 100 100 98 Oxygen Delivery Method Room Air Room Air Room Air 12/23/23 15:00 12/23/23 15:30 12/23/23 16:33 Temperature 97.9 F Temperature Source Pulse Rate 60 71 74 Pulse Rate [Left] Respiratory Rate 16 Blood Pressure 147/78 H 145/78 H 141/77 H Blood Pressure [Right Arm] Blood Pressure Mean Blood Pressure Mean [Right Arm] Blood Pressure Source [Right Arm] Blood Pressure Position [Right Arm] 02 Sat by Pulse Oximetry 100 98 Oxygen Delivery Method Room Air Room Air Lab Data Lab Results 12/23/23 14:22: Urine Color Yellow, Urine Appearance Clear, Urine pH 5.5, Ur Specific [place] >= 1.030, Urine Protein Negative, Urine Glucose (UA) Negative, Urine Ketones Negative, Urine Blood Negative, Urine Nitrate Negative, Urine Bilirubin Negative, Urine Urobilinogen 0.2, Ur Leukocyte Esterase Negative, Urine RBC None, Urine WBC None, Ur Squamous Epith Cells 3-5, Urine Bacteria Trace, Urine Mucus 1+ 12/23/23 14:40: WBC 8.0, RBC 4.26, Hgb 13.2, Hct 40.7, MCV 95.4, MCH 30.9, MCHC 32.4, RDW 13.3, Plt Count 364, MPV 8.5, Neut % (Auto) 66.5, Lymph % (Auto) 26.0, [place] % (Auto) 5.1, Eos % (Auto) 1.5, Baso % (Auto) 0.9, Neut # (Auto) 5.3, Lymph # (Auto) 2.1, [place] # (Auto) 0.4, Eos # (Auto) 0.1, Baso # (Auto) 0.1, PT 10.1, I NR 0.89 L, Sodium 136, Potassium 2.8 L*, Chloride 103, Carbon Dioxide 28, Anion Gap 7.8, BUN 8, Creatinine 0.70, Estimated Creat Clear 112, Estimated GFR 87, Est GFR ( Amer) 106, Glucose 102 H, Calcium 9.5, Magnesium 1.8, Total Bilirubin 1.6 H, AST 28, ALT 35, Alkaline Phosphatase 113, Total Creatine Kinase 237 H, Troponin I < 0.01, NT-Pro-B Natriuret Pep < 20.0, Total Protein 7.2, Albumin 4.5, Globulin 2.7, Albumin/Globulin Ratio 1.7, HIV 1&2 Antibody Rapid Nonreactive 12/23/23 14:40 12/23/23 14:40 Orders (Tests/Meds): ED MEDICATIONS Discontinued Medications Generic Name Dose Route Start Last Admin Trade Name Freq PRN Reason Stop Dose Admin Dexamethasone Sodium Phosphate 10 mg 12/23/23 14:35 12/23/23 14:57 Dexamethasone 4mg/Ml 1ml Vial IV 12/23/23 14:36 Not Given ONCE ONE Diphenhydramine HCl 25 mg 12/23/23 14:37 12/23/23 14:56 Diphenhydramine 50mg/Ml Vial IV 12/23/23 14:38 25 mg ONCE ONE Administration Lactated Ringer's 1,000 mls @ 999 mls/hr 12/23/23 14:35 12/23/23 14:56 Lactated Ringer's 1000 Ml Bag IV 12/23/23 15:35 999 mls/hr .Q1H1M ONE Administration Potassium Chloride 60 meq 12/23/23 15:14 12/23/23 15:31 Potassium Chloride 20meq Tab PO 12/23/23 15:15 60 meq ONCE ONE Administration Prochlorperazine Edisylate 10 mg 12/23/23 14:35 12/23/23 14:56 Prochlorperazine 10mg/2ml Vial IV 12/23/23 14:36 10 mg ONCE ONE Administration ORDERS Category Date Time Status CT head/brain wo con Stat Cat Scan 12/23/23 14:30 Completed XR chest portable Stat Exams 12/23/23 14:48 Completed CK [Creatine Kinase] Stat Lab 12/23/23 14:40 Completed Complete Blood Count Auto Diff Stat Lab 12/23/23 14:40 Completed Comprehensive Metabolic Panel Stat Lab 12/23/23 14:40 Completed HIV (1&2) Antibody Rapid Stat Lab 12/23/23 14:40 Completed Hep C Ab with Reflex to RNA Stat Lab 12/23/23 14:40 Received Magnesium Stat Lab 12/23/23 14:40 Completed NT Pro Brain Natriuretic Pep. Stat Lab 12/23/23 14:40 Completed PT INR [Prothrombin Time INR] Stat Lab 12/23/23 14:40 Completed Troponin I Stat Lab 12/23/23 14:40 Completed Urinalysis and Microscopic Stat Lab 12/23/23 14:22 Completed Medical Decision Narrative: D3-year-old female presents emergency department with headache, dizziness, nausea, confusion, and high blood pressure, differential diagnose include but not limited to, hypertensive urgency, migraine type headache with aura, migraine without aura, complex migraine syndrome, cervicalgia, cardiac arrhythmia, electrolyte disturbance, intracranial mass, conversion disorder, anxiety, panic attack, tension headache. Discussed patient case with the attending physician Dr. Vallecillo and Dr. Guaman My initial NIH is 0 Obtain CBC CMP, magnesium, urinalysis, CXR, CT head without contrast, Creatinine kinase, proBNP, PT/INR, troponin, will give 1 L LR IV, will give 25 mg IV Benadryl, and 10 mg Compazine for migraine. Reviewed the patient's EKG along with the attending physician, normal sinus rhythm, AK interval and QT interval within normal limits, there are no ischemic changes/ST changes, there is no STEMI. Urinalysis grossly unremarkable CMP notable for mild hypokalemia 2.8, minimal total bilirubin elevation 1.6, total CK is mildly elevated to 237 Will give 60 mill equivalent p.o. potassium for hypokalemia Troponin within normal limits CBC grossly unremarkable, HIV is nonreactive, I reviewed the patient's chest x-ray along the corresponding radiologic report there is no acute abnormality. I reviewed the patient CT head without contrast on the corresponding radiologic report, there are no acute findings. Reexamination of patient at 4 PM, patient is doing better, headache has improved, she has no other acute symptomatology, patient does have neurology consultation on Saturday of this week. I recommend she keep that follow-up for possible complex migraine type syndrome. Strict ED return precaution discussed with the patient at the bedside, patient agree with current treatment plan/discharge plan, patient will need to follow-up with PCP to recheck her electrolytes in the upcoming days, patient voiced understanding with this. Recommend potassium rich foods, good p.o. intake with fluids. Patient once again voiced understanding. <Vincenzo Vallecillo MD - Last Filed: 12/24/23 19:36> Vital Signs: 12/23/23 14:26 12/23/23 14:30 12/23/23 14:35 Temperature 97.9 F Temperature Source Oral Pulse Rate 84 67 Pulse Rate [Left] 62 Respiratory Rate 16 Blood Pressure 163/95 H 145/88 H Blood Pressure [Right Arm] 145/88 H Blood Pressure Mean 117 107 Blood Pressure Mean [Right Arm] 107 Blood Pressure Source [Right Arm] Automatic Cuff Blood Pressure Position [Right Arm] Sitting 02 Sat by Pulse Oximetry 100 100 98 Oxygen Delivery Method Room Air Room Air Room Air 12/23/23 15:00 12/23/23 15:30 12/23/23 16:33 Temperature 97.9 F Temperature Source Pulse Rate 60 71 74 Pulse Rate [Left] Respiratory Rate 16 Blood Pressure 147/78 H 145/78 H 141/77 H Blood Pressure [Right Arm] Blood Pressure Mean Blood Pressure Mean [Right Arm] Blood Pressure Source [Right Arm] Blood Pressure Position [Right Arm] 02 Sat by Pulse Oximetry 100 98 Oxygen Delivery Method Room Air Room Air Lab Data Lab Results 12/23/23 14:22: Urine Color Yellow, Urine Appearance Clear, Urine pH 5.5, Ur Specific [place] >= 1.030, Urine Protein Negative, Urine Glucose (UA) Negative, Urine Ketones Negative, Urine Blood Negative, Urine Nitrate Negative, Urine Bilirubin Negative, Urine Urobilinogen 0.2, Ur Leukocyte Esterase Negative, Urine RBC None, Urine WBC None, Ur Squamous Epith Cells 3-5, Urine Bacteria Trace, Urine Mucus 1+ 12/23/23 14:40: WBC 8.0, RBC 4.26, Hgb 13.2, Hct 40.7, MCV 95.4, MCH 30.9, MCHC 32.4, RDW 13.3, Plt Count 364, MPV 8.5, Neut % (Auto) 66.5, Lymph % (Auto) 26.0, [place] % (Auto) 5.1, Eos % (Auto) 1.5, Baso % (Auto) 0.9, Neut # (Auto) 5.3, Lymph # (Auto) 2.1, [place] # (Auto) 0.4, Eos # (Auto) 0.1, Baso # (Auto) 0.1, PT 10.1, I NR 0.89 L, Sodium 136, Potassium 2.8 L*, Chloride 103, Carbon Dioxide 28, Anion Gap 7.8, BUN 8, Creatinine 0.70, Estimated Creat Clear 112, Estimated GFR 87, Est GFR ( Amer) 106, Glucose 102 H, Calcium 9.5, Magnesium 1.8, Total Bilirubin 1.6 H, AST 28, ALT 35, Alkaline Phosphatase 113, Total Creatine Kinase 237 H, Troponin I < 0.01, NT-Pro-B Natriuret Pep < 20.0, Total Protein 7.2, Albumin 4.5, Globulin 2.7, Albumin/Globulin Ratio 1.7, HIV 1&2 Antibody Rapid Nonreactive Orders (Tests/Meds): ED MEDICATIONS Discontinued Medications Generic Name Dose Route Start Last Admin Trade Name Cecil PRN Reason Stop Dose Admin Dexamethasone Sodium Phosphate 10 mg 12/23/23 14:35 12/23/23 14:57 Dexamethasone 4mg/Ml 1ml Vial IV 12/23/23 14:36 Not Given ONCE ONE Diphenhydramine HCl 25 mg 12/23/23 14:37 12/23/23 14:56 Diphenhydramine 50mg/Ml Vial IV 12/23/23 14:38 25 mg ONCE ONE Administration Lactated Ringer's 1,000 mls @ 999 mls/hr 12/23/23 14:35 12/23/23 14:56 Lactated Ringer's 1000 Ml Bag IV 12/23/23 15:35 999 mls/hr .Q1H1M ONE Administration Potassium Chloride 60 meq 12/23/23 15:14 12/23/23 15:31 Potassium Chloride 20meq Tab PO 12/23/23 15:15 60 meq ONCE ONE Administration Prochlorperazine Edisylate 10 mg 12/23/23 14:35 12/23/23 14:56 Prochlorperazine 10mg/2ml Vial IV 12/23/23 14:36 10 mg ONCE ONE Administration ORDERS Category Date Time Status CT head/brain wo con Stat Cat Scan 12/23/23 14:30 Completed XR chest portable Stat Exams 12/23/23 14:48 Completed CK [Creatine Kinase] Stat Lab 12/23/23 14:40 Completed Complete Blood Count Auto Diff Stat Lab 12/23/23 14:40 Completed Comprehensive Metabolic Panel Stat Lab 12/23/23 14:40 Completed HIV (1&2) Antibody Rapid Stat Lab 12/23/23 14:40 Completed Hep C Ab with Reflex to RNA Stat Lab 12/23/23 14:40 Received Magnesium Stat Lab 12/23/23 14:40 Completed NT Pro Brain Natriuretic Pep. Stat Lab 12/23/23 14:40 Completed PT INR [Prothrombin Time INR] Stat Lab 12/23/23 14:40 Completed Troponin I Stat Lab 12/23/23 14:40 Completed Urinalysis and Microscopic Stat Lab 12/23/23 14:22 Completed Medical Decision Narrative: D3-year-old female presents emergency department with headache, dizziness, nausea, confusion, and high blood pressure, differential diagnose include but not limited to, hypertensive urgency, migraine type headache with aura, migraine without aura, complex migraine syndrome, cervicalgia, cardiac arrhythmia, electrolyte disturbance, intracranial mass, conversion disorder, anxiety, panic attack, tension headache. Discussed patient case with the attending physician Dr. Vallecillo and Dr. Guaman My initial NIH is 0 Obtain CBC CMP, magnesium, urinalysis, CXR, CT head without contrast, Creatinine kinase, proBNP, PT/INR, troponin, will give 1 L LR IV, will give 25 mg IV Benadryl, and 10 mg Compazine for migraine. Reviewed the patient's EKG along with the attending physician, normal sinus rhythm, AK interval and QT interval within normal limits, there are no ischemic changes/ST changes, there is no STEMI. Urinalysis grossly unremarkable CMP notable for mild hypokalemia 2.8, minimal total bilirubin elevation 1.6, total CK is mildly elevated to 237 Will give 60 mill equivalent p.o. potassium for hypokalemia Troponin within normal limits CBC grossly unremarkable, HIV is nonreactive, I reviewed the patient's chest x-ray along the corresponding radiologic report there is no acute abnormality. I reviewed the patient CT head without contrast on the corresponding radiologic report, there are no acute findings. Reexamination of patient at 4 PM, patient is doing better, headache has improved, she has no other acute symptomatology, patient does have neurology consultation on Saturday of this week. I recommend she keep that follow-up for possible complex migraine type syndrome. Strict ED return precaution discussed with the patient at the bedside, patient agree with current treatment plan/discharge plan, patient will need to follow-up with PCP to recheck her electrolytes in the upcoming days, patient voiced understanding with this. Recommend potassium rich foods, good p.o. intake with fluids. Patient once again voiced understanding. I was consulted by the VARSHA, and we discussed the complexity of the problems being addressed. I approved the treatment and management plan for this patient's care in the Emergency Department, thus performing a substantive portion of the medical decision making. Vincenzo Vallecillo MD Critical Care <ADAM Pandey - Last Filed: 12/23/23 16:06> Critical Care Time Critical Care Time: No
[2023-12-23 14:35] VITALS: BP 145/88; PULSE 62; RESP 16; TEMP 36.6; O2SAT 98; BMI 28.3
[2023-12-23 14:45] LABS: Microscopic, Urine URINE MICROSCOPIC (MICROSCOPIC)
[2023-12-23 14:48] LABS: Appearance,Urine CLEAR (Clear); Bilirubin,Urine Negative (Negative); Blood, Urine Negative (Negative); Color,Urine YELLOW (Yellow); Glucose,Urine (UA) Negative (Negative); Ketones,Urine Negative (Negative); Leukocyte Esterase,Urine Negative (Negative); Nitrate,Urine Negative (Negative); PH,Urine 5.5 (5.0-8.5); Protein,Urine Negative (Negative); Specific Gravity, Urine >= 1.030 (1.005-1.030); Urobilinogen,Urine 0.2 EU/dl (0.2)
--- NOTE | 2023-12-23 14:48 | XR_ITS ---
FINAL REPORT CLINICAL HISTORY: Shortness of breath COMPARISON: 08/01/2020 FINDINGS: No acute pulmonary opacity is present. There is no evidence of effusion or pneumothorax. Mediastinum is unremarkable. Heart size is normal. IMPRESSION: No acute abnormality. Reviewed, Interpreted and Dictated by Monika Herring MD Transcribed by Puja Gauthier Authenticated and [facility]
[2023-12-23 14:55] LABS: Basophils # 0.1 K/mm3 (0-0.2); Basophils % 0.9 % (0.1-2.0); Eosinophils # 0.1 K/mm3 (0.0-0.4); Eosinophils % 1.5 % (0.1-12.0); Hematocrit 40.7 % (37.0-47.0); Hemoglobin 13.2 g/dL (12.2-16.2); Lymphocytes # 2.1 K/mm3 (0.7-4.5); Mean Corpuscular HGB Conc 32.4 g/dL (31.8-35.4); Mean Corpuscular Hemoglobin 30.9 pg (27.0-31.2); Mean Corpuscular Volume 95.4 fl (81-99); Mean Platelet Volume 8.5 fl (7.4-10.4); Monocytes # 0.4 K/mm3 (0.1-1.0); Monocytes % 5.1 % (1.7-9.3); Neutrophils # 5.3 K/mm3 (1.8-7.8); Neutrophils % 66.5 % (37.0-80.0); Platelet Count 364 K/mm3 (142-424); Red Blood Count 4.26 M/mm3 (4.20-5.40); Red Cell Distribution Width 13.3 % (11.5-17.5)
[2023-12-23] MEDS: LACTATED RINGERS 1000ML 1,000 ML 999 ML IV (14:56)
[2023-12-23] MEDS: PROCHLORPERAZINE 10MG/2ML VIAL 10 MG IV (14:56)
[2023-12-23] MEDS: diphenhydrAMINE 50MG/ML VIAL 25 MG IV (14:56)
[2023-12-23 15:00] VITALS: BP 147/78; PULSE 60; O2SAT 100
[2023-12-23 15:02] LABS: Albumin Level 4.5 g/dl (3.5-5.0); Chloride 103 mmol/L (98-107); Sodium 136 mmol/L (136-145)
[2023-12-23 15:04] LABS: Alanine Aminotransferase 35 U/L (12-78); Anion Gap 7.8 mEq/L (5-15); Aspartate Amino Transferase 28 U/L (14-36); Blood Urea Nitrogen 8 mg/dl (7-17); Carbon Dioxide 28 mmol/L (22.0-30.0); Creatinine Clearance Estimated 112 mL/min (50-200); Estimated Glomerular Filt Rate 87 ml/min (>60); GFR (African American) 106 ML/MIN (>60)
[2023-12-23 15:05] LABS: Albumin/Globulin Ratio 1.7 (1.1-1.8); Alkaline Phosphatase 113 U/L (38-126); Bilirubin,Total 1.6 mg/dl (0.2-1.3); Calcium 9.5 mg/dl (8.4-10.2); Creatine Kinase 237 U/L (30-135); Globulin 2.7 g/dL (1.3-3.2); Glucose 102 mg/dl (74-100); Magnesium 1.8 mg/dl (1.6-2.3); Total Protein,Serum 7.2 g/dl (6.3-8.2)
[2023-12-23 15:11] LABS: Potassium 2.8 mmoL/L (3.5-5.1)
[2023-12-23 15:21] LABS: Bacteria,Urine Trace /lpf; Mucus,Urine 1+ /lpf
[2023-12-23 15:29] LABS: HIV (1&2) Antibody Rapid NONREACTIVE (NONREACTIVE)
[2023-12-23 15:30] VITALS: BP 145/78; PULSE 71; O2SAT 98
[2023-12-23] MEDS: POTASSIUM CHLORIDE 20MEQ TAB 60 MEQ PO (15:31)
[2023-12-23 15:33] LABS: Troponin I < 0.01 ng/ml (0.00-0.034)
[2023-12-23 16:13] LABS: NT Pro Brain Natriuretic Pep. < 20.0 pg/mL (0-125)
[2023-12-23 16:33] VITALS: BP 141/77; PULSE 74; RESP 16; TEMP 36.6
[2023-12-23 16:41] LABS: INR 0.89 (0.9-1.1); Prothrombin Time 10.1 seconds (10.1-12.5)
[2023-12-25 10:41] LABS: HCV Ab Non Reactive (Non Reactive)
== END 2023-12-23 16:34 | disposition home or self-care (01) ==
PROVIDERS: Physician Assistant; Emergency Provider Emergency Medicine; PCP Nurse Practitioner Family
DX: E87.6 Hypokalemia (principal); R51.9 Headache, unspecified; R42 Dizziness and giddiness; R11.0 Nausea
CPT/HCPCS: 70450; 71045; 80053; 81001; 82550; 83735; 83880; 84484; 85025; 85610; 86803; 87389; 93005; 96361; 96374; 96375; 99285; J0780; J1200; J7120